=== PATIENT | female | born 1940 | race Caucasian/White ===

== ENCOUNTER 2020-04-14 18:14 | Inpatient (IN) | payer MEDICARE, MEDICAID ==
[~2020-04-14] VITALS: Ht 152.4 cm; Wt 65.8 kg
--- NOTE | 2020-04-14 18:19 | NUR ---
patient leonel Mitchell from HD center low bp 70/40 after HD Tx. On vent and trach, GT site intact, non verbal. IV access initiated. Urine collected and sent to lab. Connected to the monitor and pulse ox. Kept comfortable will continue to monitor accordingly.
--- NOTE | 2020-04-14 18:19 | NUR ---
CALLED [facility] [phone] COVID NEGATIVE 03/30/20 WILL FAX OVER INFO TO US.
[2020-04-14] MEDS ORDERED: IV NS 0.9% 500 ML BAG IV ONE (18:30)
--- NOTE | 2020-04-14 18:43 | NUR ---
MOVE SHEET SUBMITTED AND CALLED FOR TELE BED.
[2020-04-14] MEDS ORDERED: FOLI0.8T2 GT (19:05)
[2020-04-14] MEDS ORDERED: SPIR25TA6 GT (19:05)
[2020-04-14] MEDS ORDERED: LACT10SO5 GT (19:05)
[2020-04-14] MEDS ORDERED: LABE100T5 GT (19:05)
[2020-04-14] MEDS ORDERED: LINA5TAB GT (19:05)
[2020-04-14] MEDS ORDERED: CHOL100062 PO (19:05)
[2020-04-14] MEDS ORDERED: LEVO75TA7 GT (19:05)
[2020-04-14] MEDS ORDERED: CLON0.3T GT (19:05)
[2020-04-14] MEDS ORDERED: GLIM2TAB31 GT (19:05)
[2020-04-14] MEDS ORDERED: MELA3TAB41 GT (19:05)
[2020-04-14] MEDS ORDERED: DIPH25CA51 GT (19:05)
[2020-04-14] MEDS ORDERED: ACET-2605 GT (19:05)
[2020-04-14] MEDS ORDERED: FENO48TA GT (19:05)
[2020-04-14] MEDS ORDERED: HYDR25SU33 RC (19:05)
[2020-04-14] MEDS ORDERED: BLOO-668 IN (19:05)
[2020-04-14] MEDS ORDERED: INSU100V39 SQ (19:05)
[2020-04-14] MEDS ORDERED: ONDA4TAB5 GT (19:05)
[2020-04-14] MEDS ORDERED: INSU100V7 SQ (19:05)
[2020-04-14] MEDS ORDERED: SIME125C81 GT (19:05)
[2020-04-14] MEDS ORDERED: DRON2.5C18 GT (19:05)
[2020-04-14] MEDS ORDERED: AMIN30LI2 GT (19:05)
[2020-04-14] MEDS ORDERED: GABA600T12 GT (19:05)
[2020-04-14] MEDS ORDERED: MIRT7.5T10 GT (19:05)
[2020-04-14] MEDS ORDERED: LANS30CA56 GT (19:05)
--- NOTE | 2020-04-14 19:15 | NUR ---
REC'D REPORT FROM BRADLEY SHERIFF FOR CAMELIA
[2020-04-14 19:22] LABS: BASOPHILS % (AUTO) 0.1 % (0.0-2.0); EOSINOPHILS % (AUTO) 0.7 % (0.0-6.0); HEMATOCRIT 37 % (33-45); HEMOGLOBIN 11.4 g/dL (11.5-14.8); LYMPHOCYTES # (AUTO) 1.1 /CMM (0.8-4.8); LYMPHOCYTES % (AUTO) 3.9 % (20.0-44.0); MEAN CORPUSCULAR HGB CONC 31 g/dl (31.0-36.0); MEAN CORPUSCULAR VOLUME 97 fL (82-100); MONOCYTES # (AUTO) 0.8 /CMM (0.1-1.30); NEUTROPHILS # (AUTO) 26.5 /CMM (1.8-8.9); NEUTROPHILS % (AUTO) 92.3 % (43.0-81.0); PLATELET COUNT (AUTO) 356 /CMM (150-450); RED BLOOD CELL COUNT(AUTO) 3.78 MIL/uL (4.0-5.2); WHITE BLOOD COUNT (AUTO) 28.7 K/uL (4.3-11.0)
[2020-04-14 19:35] LABS: BILIRUBIN,URINE Negative (NEGATIVE); COLOR,URINE YELLOW (YELLOW); LEUKOCYTE ESTERASE ,URINE Large (NEGATIVE); NITRITE, URINE Negative (NEGATIVE); PH,URINE 5.5 (5.0-8.0); PROTEIN,URINE 100 mg/dl (NEGATIVE); UGLUCOSE Negative (NEGATIVE); UROBILINOGEN,URINE 0.2 EU/dL (0.2)
[2020-04-14 19:42] LABS: ALANINE AMINOTRANSFERASE 16 U/L (12-78); ALBUMIN 3.1 g/dL (3.4-5.0); ALKALINE PHOSPHATASE 67 U/L (46-116); ASPARTATE AMINOTRANSFERASE 16 U/L (15-37); BILIRUBIN,DIRECT 0.1 mg/dL (0.0-0.2); BILIRUBIN,TOTAL 0.5 mg/dL (0.2-1.0); CARBON DIOXIDE 22 mmol/L (21-32); CHLORIDE 103 mmol/L (98-107); CREATININE 2.8 mg/dL (0.6-1.3); GLUCOSE 174 mg/dL (74-106); POTASSIUM 4.5 mmol/L (3.5-5.1); SODIUM SERUM 139 mmol/L (136-145); TOTAL PROTEIN, SERUM 8.4 g/dL (6.4-8.2); UREA NITROGEN, BLOOD 55 mg/dL (7-18)
[2020-04-14 19:42] LABS: BACTERIA,URINE 3+ /HPF (None Seen); SQUAMOUS EPITHELIAL CELL,UR Few /HPF (None Seen); WBC,URINE 21-50 /HPF (0-3)
--- NOTE | 2020-04-14 20:05 | NUR ---
COVID SWAB SENT TO LAB
[2020-04-14] MEDS ORDERED: PIPERACILLIN /TAZOBACTAM 3.375 G in IV D5W 50 ML IV ONE (20:30)
[2020-04-14] MEDS ORDERED: VANCOMYCIN 1 GM in IV D5W 250 ML IV ONE (20:30)
[2020-04-14] MEDS ORDERED: PIPERACILLIN /TAZOBACTAM 3.375 G VIAL IV ONE (20:44)
[2020-04-14] MEDS ORDERED: VANCOMYCIN 1 GM VIAL ONE (20:44)
--- NOTE | 2020-04-14 21:03 | NUR ---
COVID SWAB SENT TO LAB
--- NOTE | 2020-04-14 21:18 | NUR ---
GAVE REPORT TO BRADLEY WAKEFIELD FOR CAMELIA.
[2020-04-14 22:00] VITALS: BP 154/80
--- NOTE | 2020-04-14 22:00 | NUR ---
RN OPENING NOTE ADMIT PATIENT FROM ER TO [facility] AT ROOM 114-2 80 YEAR OLD FEMALE NON VERBAL,ON TRACH, MECHANICAL VENT SETTING AC 12 TV500 FIO2:40% PEEP 5,O2:100% WITH DIAGNOSIS SEPSIS,ON G-TUBE FEEDING,IV SITE IS ON RIGHT AC #18 AND LEFT WRIST #20 INTACT PATENT,PERM-CATH ON RIGHT UPPER CHEST FOR DIALYSIS,MONDAY,Monday DIALYSIS DAYS,HEAD OF BE ELEVATED,CONTINUE TO MONITOR.
[2020-04-14] MEDS ORDERED: DEXTROSE 50%-WATER 50 ML DISP.SYRIN IV PRN (23:00)
[2020-04-14] MEDS ORDERED: MAG HYDROX/AL HYDROX/SIMETH 30 ML UDC PO PRN (23:00)
[2020-04-14] MEDS ORDERED: ONDANSETRON HCL/PF 4 MG/2 ML VIAL IVP PRN (23:00)
[2020-04-14] MEDS ORDERED: ACETAMINOPHEN 325 MG TABLET PO PRN (23:00)
[2020-04-14] MEDS ORDERED: MAGNESIUM HYDROXIDE 30 ML UDC PO PRN (23:00)
[2020-04-14] MEDS ORDERED: Z GUARD REMEDY 2 OZ OINT TP PRN (23:00)
[2020-04-15] VITALS (7 sets, daily range): BP systolic 134–199; BP diastolic 55–84
[2020-04-15] MEDS: NEPRO 1,000 ML BOTTLE GT PRN (05:52)
[2020-04-15 06:39] LABS: BASOPHILS % (AUTO) 0.1 % (0.0-2.0); EOSINOPHILS % (AUTO) 0.6 % (0.0-6.0); HEMATOCRIT 40 % (33-45); HEMOGLOBIN 12.6 g/dL (11.5-14.8); MEAN CORPUSCULAR HGB CONC 32 g/dl (31.0-36.0); MEAN CORPUSCULAR VOLUME 95 fL (82-100); MONOCYTES # (AUTO) 0.6 /CMM (0.1-1.30); MONOCYTES % (AUTO) 3.2 % (2.0-12.0); NEUTROPHILS # (AUTO) 17.5 /CMM (1.8-8.9); NEUTROPHILS % (AUTO) 91.1 % (43.0-81.0); PLATELET COUNT (AUTO) 336 /CMM (150-450); RED BLOOD CELL COUNT(AUTO) 4.14 MIL/uL (4.0-5.2); WHITE BLOOD COUNT (AUTO) 19.2 K/uL (4.3-11.0)
--- NOTE | 2020-04-15 06:53 | NUR ---
RN CLOSING NOTE PATIENT REMAINS ON CONFUSED NON VERBAL EYE CLOSED ON MECHANICAL VENERATOR,O2;100% ON G-TUBE FEEDING NEPHRO 55CC/HR CHECKED PLACEMENT IN PLACE NO RESIDUAL,HEAD OF BED ELEVATED ALL THE TIME,ENDORSE NEXT COMING SHIFT FOR CONTINUATION OF CARE
[2020-04-15 07:00] LABS: CALCIUM, SERUM 9.3 mg/dL (8.5-10.1); CARBON DIOXIDE 20 mmol/L (21-32); CHLORIDE 101 mmol/L (98-107); CREATININE 3.4 mg/dL (0.6-1.3); GLUCOSE 140 mg/dL (74-106); MAGNESIUM 2.3 mg/dL (1.8-2.4); PHOSPHORUS 5.5 mg/dL (2.5-4.9); POTASSIUM 5.2 mmol/L (3.5-5.1); SODIUM SERUM 137 mmol/L (136-145); UREA NITROGEN, BLOOD 66 mg/dL (7-18)
[2020-04-15] MEDS ORDERED: VANCOMYCIN 500 MG in IV D5W 100 ML IV PRN (07:30)
--- NOTE | 2020-04-15 07:30 | NUR ---
PT RECEIVED RESTING COMFORTABLY IN BED. NO S/S OR C/O PAIN OR DISTRESS NOTED. SIDERAILS UP X2, CALL LIGHT LEFT WITHIN REACH. WILL CONTINUE PLAN OF CARE.
--- NOTE | 2020-04-15 08:00 | NUR ---
WOUND CARE CONSULT: PT PRESENTS WITH SACRAL SCARRING, RASH/REDNESS TO PERINEAL/INNER THIGH AREAS, SCARRING/CALLUSED AREAS TO BILATERAL HEELS AND DISCOLORED AREAS OF SKIN ON BUTTOCKS AND UPPER EXTREMITIES, PRESENT ON ADMISSION. RECOMMENDATIONS MADE FOR SKIN PROTECTION. DISCUSSED WITH NURSING STAFF. FIRST STEP LOW AIRLOSS MATTRESS ORDERED. MD IN AGREEMENT WITH PLAN OF CARE. Addendum: 04/15/20 at 0802 by SISSY LINDSAY WNDNU Amended: Links added.
[2020-04-15] MEDS: INSULIN REGULAR, HUMAN 100 UNIT/ML 3 ML VIAL SQ PRN ×3 (08:30→17:35)
[2020-04-15] MEDS: PIPERACILLIN /TAZOBACTAM 2.25 G in IV D5W 50 ML IV SCH ×3 (09:02→17:08)
[2020-04-15] MEDS: BLOOD SUGAR DIAGNOSTIC 1 EACH STRIP VI SCH ×4 (09:03→21:55)
[2020-04-15] MEDS: LEVOTHYROXINE SODIUM 75 MCG TABLET GT SCH (09:03)
[2020-04-15] MEDS: CLOTRIMAZOLE 1% 15 GM TUBE TP SCH ×2 (09:04→16:52)
[2020-04-15] MEDS: LABETALOL HCL (100MG) 100 MG TABLET GT SCH ×3 (12:31→17:46)
--- NOTE | 2020-04-15 18:18 | NUR ---
CHANGE OF SHIFT REPORT PT RESTING COMFORTABLE IN BED. NO S/S OR C/O PAIN OR DISTRESS NOTED. SIDE RAILS UP X2, CALL LIGHT LEFT WITHIN REACH PT KEPT CLEAN, DRY, AND COMFORTABLE. NO SIGNIFICANT CHANGES SINCE PREVIOUS SHIFT. WILL GIVE REPORT TO CLOVIS HUERTA.
--- NOTE | 2020-04-15 19:30 | NUR ---
TELE1 RN NOTES RECEIVED ON BED SLEEPING,AROUSABLE TO VERBAL STIMULI,ON TRACH/VENT,SETTINGS TOLERATED WELL.GT FEEDING OF NEPRO AT 55ML/HR RATE TOLERATED WELL,WITH 5ML RESIDUAL VOLUME.HOB ELEVATED FOR ASPIRATION PRECAUTION.ISOLATION PENDING COVID PCR TEST RESULT.REPOSITION PER PROTOCOL,CALL LIGHT IN REACH,NEEDS ANTICIPATED.
--- NOTE | 2020-04-15 22:00 | NUR ---
TELE1 RN NOTES ACCU-CHECK BLOOD SUGAR CHECK 202,COVERED WITH HUMULIN R 4 UNITS PER SLIDING SCALE.
[2020-04-15] MEDS: *INSULIN REGULAR(HUMULIN R)HUM 100 UNIT/ML VIAL SQ PRN (22:01)
[2020-04-16] VITALS (8 sets, daily range): BP systolic 118–178; BP diastolic 70–85
[2020-04-16] MEDS: PIPERACILLIN /TAZOBACTAM 2.25 G in IV D5W 50 ML IV SCH ×6 (05:26→23:18)
[2020-04-16] MEDS: NEPRO 1,000 ML BOTTLE GT PRN ×2 (06:16→23:32)
[2020-04-16 06:44] LABS: BASOPHILS % (AUTO) 0.3 % (0.0-2.0); EOSINOPHILS % (AUTO) 2.3 % (0.0-6.0); HEMATOCRIT 39 % (33-45); HEMOGLOBIN 12.6 g/dL (11.5-14.8); LYMPHOCYTES # (AUTO) 1.1 /CMM (0.8-4.8); LYMPHOCYTES % (AUTO) 8.4 % (20.0-44.0); MEAN CORPUSCULAR HGB CONC 32 g/dl (31.0-36.0); MEAN CORPUSCULAR VOLUME 94 fL (82-100); MONOCYTES # (AUTO) 0.8 /CMM (0.1-1.30); MONOCYTES % (AUTO) 6.1 % (2.0-12.0); NEUTROPHILS # (AUTO) 10.7 /CMM (1.8-8.9); NEUTROPHILS % (AUTO) 82.9 % (43.0-81.0); PLATELET COUNT (AUTO) 350 /CMM (150-450); RED BLOOD CELL COUNT(AUTO) 4.14 MIL/uL (4.0-5.2); WHITE BLOOD COUNT (AUTO) 12.9 K/uL (4.3-11.0)
--- NOTE | 2020-04-16 06:48 | NUR ---
TELE1 RN NOTES SYSTOLIC BLOOD PRESSURE STILL ON THE HIGH SIDE.FOR HD TODAY,GT FEEDING TOLERATED WELL.IN NO ACUTE DISTRESS.
--- NOTE | 2020-04-16 07:15 | NUR ---
RN OPENING NOTE RECEIVED PATIENT IN BED RESTING COMFORTABLE NON VERBAL, ON TRACH, MECHANICAL VENT SETTING AC 12 TV 500 FIO2:40% PEEP 5,O2:100%. PATIENT IS ON G-TUBE FEEDING AT 55 ML/HR. IV SITE IS ON RIGHT AC #18 AND LEFT WRIST #20 INTACT PATENT. PERM-CATH ON RIGHT UPPER CHEST FOR DIALYSIS. SAFETY PREACUATIONS IMPLEMENTED, BED LOCKED IN LOWEST POSITION, HEAD OF BE ELEVATED,SIDE RAILS UP, CALL LIGHT WITHIN REACH. WILL CONTINUE TO MONITOR CLIENT AND PROVIDE CARE THROUGHOUT SHIFT.
[2020-04-16 07:19] LABS: CALCIUM, SERUM 9.1 mg/dL (8.5-10.1); CARBON DIOXIDE 21 mmol/L (21-32); CHLORIDE 102 mmol/L (98-107); CREATININE 4.2 mg/dL (0.6-1.3); GLUCOSE 130 mg/dL (74-106); MAGNESIUM 2.7 mg/dL (1.8-2.4); PHOSPHORUS 5.5 mg/dL (2.5-4.9); POTASSIUM 4.4 mmol/L (3.5-5.1); SODIUM SERUM 138 mmol/L (136-145)
[2020-04-16 07:23] LABS: UREA NITROGEN, BLOOD 98 mg/dL (7-18)
[2020-04-16] MEDS: BLOOD SUGAR DIAGNOSTIC 1 EACH STRIP VI SCH ×4 (07:30→21:32)
[2020-04-16] MEDS: LABETALOL HCL (100MG) 100 MG TABLET GT SCH (08:40)
[2020-04-16] MEDS: LEVOTHYROXINE SODIUM 75 MCG TABLET GT SCH (08:44)
[2020-04-16] MEDS: CLOTRIMAZOLE 1% 15 GM TUBE TP SCH ×2 (08:44→17:16)
[2020-04-16] MEDS: INSULIN REGULAR, HUMAN 100 UNIT/ML 3 ML VIAL SQ PRN ×3 (08:57→17:21)
[2020-04-16] MEDS ORDERED: hydrALAZINE HCL IV 20 MG VIAL IV PRN (10:30)
--- NOTE | 2020-04-16 18:56 | NUR ---
RN CLOSING NOTE PATIENT IN BED RESTING COMFORTABLE NON VERBAL, ON TRACH, MECHANICAL VENT SETTING AC 12 TV 500 FIO2:40% PEEP 5,O2:100%. PATIENT IS ON G-TUBE FEEDING AT 55 ML/HR. IV SITE IS ON RIGHT AC #18 AND LEFT WRIST #20 INTACT PATENT. PERM-CATH ON RIGHT UPPER CHEST FOR DIALYSIS. HEMODIALYSIS COMLETED TODAY WITH A TOTAL OF 1100 ML REMOVED. SAFETY PRECAUTIONS IMPLEMENTED, BED LOCKED IN LOWEST POSITION, HEAD OF BE ELEVATED,SIDE RAILS UP, CALL LIGHT WITHIN REACH. WILL ENDORSE CARE TO UPCOMING SHIFT.
--- NOTE | 2020-04-16 19:30 | NUR ---
RN OPENING NOTES: RECEIVED NONVERBAL PATIENT IN BED RESTING COMFORTABLY. PATIENT IN NO S/SX OF ACUTE DISTRESS AT THIS TIME. NO SOB NOTED. PATIENT'S BREATHING IS EVEN AND UNLABORED. PATIENT ON MECHANICAL VENT; SETTINGS PRESCRIBED; PT TOLERATED WELL. AMBU BAG AT BED SIDE ALARMS SET PER PROTOCOL AND AUDIBLE. VENT PLUGGED IN TO RED OUTLET. NO DISTRESS NOTED. PATIENT ON TELE MONITORING READING SINUS RHYTHM HR IS @80S AT THE TIME OF RECEIVED. G TUBE FLUSHING AND PATENT; SITE CLEAN DRY AND INTACT; NO RESIDUAL NOTED; G TUBE FEEDING (NEPRO @55ml/hr) PATIENT TOLERATES WELL. NOTED IV SITE ON R AC #18; PATENT, INTACT AND FLUSHING WELL; NO S/S OF INFECTION OR INFILTRATION. PT ALSO HAS R UC PERMA CATH; INTACT AND SECURED. BILATERAL SOFT WRIST RESTRAINTS IN PLACE, ASSESSED PER PROTOCOL.SAFETY MEASURES HAVE BEEN PROVIDED AND IMPLEMENTED. PATIENT BED ALARM IS ON. HEAD OF BED ELEVATED. BED IS LOCKED, IN LOWEST POSITION AND SIDE RAILS UP. CALL LIGHT WITHIN REACH OF THE PATIENT. APPLICABLE ISOLATION PRECAUTIONS IN PLACE. WILL CONTINUE TO MONITOR AND REASSESS FOR ANY CHANGES AND WILL CARRY OUT ANY ONGOING AND ACTIVE MD ORDER.
[2020-04-16] MEDS: *INSULIN REGULAR(HUMULIN R)HUM 100 UNIT/ML VIAL SQ PRN (21:34)
--- NOTE | 2020-04-16 23:00 | NUR ---
RN NOTES PATIENT REMAINS IN NO ACUTE RESPIRATORY DISTRESS AT THIS TIME, NO CHANGES TO CONDITION/STATUS. PHARMACEUTICAL SERVICE REPRESENTATIVE WELL AWARE. WILL CONTINUE TO MONITOR AND REASSESS FOR ANY CHANGES THROUGHOUT THE SHIFT
[2020-04-17] VITALS: BP 160/71
--- NOTE | 2020-04-17 03:00 | NUR ---
RN NOTES NO CHANGES IN PATIENT CONDITION AT THIS TIME PATIENT VITALS STABLE, NO SIGNS OF ACUTE RESPIRATORY DISTRESS. PATIENT STILL IN BED SLEEPING COMFORTABLY. NO NOTED PAIN OR ANY DISCOMFORT AT THIS TIME. WILL CONTINUE TO MONITOR AND REASSESS FOR ANY CHANGES THROUGHOUT THE SHIFT.
[2020-04-17 04:00] VITALS: BP 159/64
[2020-04-17] MEDS: PIPERACILLIN /TAZOBACTAM 2.25 G in IV D5W 50 ML IV SCH ×4 (05:06→23:13)
[2020-04-17 06:26] LABS: BASOPHILS % (AUTO) 0.3 % (0.0-2.0); EOSINOPHILS % (AUTO) 5.7 % (0.0-6.0); HEMATOCRIT 39 % (33-45); HEMOGLOBIN 12.5 g/dL (11.5-14.8); LYMPHOCYTES # (AUTO) 1.1 /CMM (0.8-4.8); LYMPHOCYTES % (AUTO) 8.1 % (20.0-44.0); MEAN CORPUSCULAR HGB CONC 32 g/dl (31.0-36.0); MEAN CORPUSCULAR VOLUME 95 fL (82-100); MONOCYTES # (AUTO) 1.1 /CMM (0.1-1.30); MONOCYTES % (AUTO) 8.2 % (2.0-12.0); NEUTROPHILS # (AUTO) 10.4 /CMM (1.8-8.9); NEUTROPHILS % (AUTO) 77.7 % (43.0-81.0); PLATELET COUNT (AUTO) 340 /CMM (150-450); RED BLOOD CELL COUNT(AUTO) 4.08 MIL/uL (4.0-5.2); WHITE BLOOD COUNT (AUTO) 13.3 K/uL (4.3-11.0)
--- NOTE | 2020-04-17 06:45 | NUR ---
OSTEOPATHY DOCTOR CLOSING NOTE: PATIENT REMAINS IN ROOM IN NO SIGNS OF RESPIRATORY DISTRESS; STILL ON VENT SETTING PER ORDERED. SAFETY MEASURES IMPLEMENTED, BED IN LOWEST POSITION, LOCKED, SIDE RAILS UP, CALL LIGHT WITHIN REACH. ALL NEEDS AND ORDERS ADDRESSED DURING THE SHIFT. IV ACCESS MAINTAINED INTACT, SECURED AND FLUSHING WELL. ALL DUE MEDS GIVEN ORDERED & SCHEDULED ; PATIENT TOLERATED WELL. PATIENT KEPT CLEAN AND COMFORTABLE WITHIN THE SHIFT. PATIENT ENDORSED TO INCOMING SHIFT RN WITH STABLE VITAL SIGN AND FOR CONTINUITY OF CARE.
[2020-04-17 06:46] LABS: CALCIUM, SERUM 9.1 mg/dL (8.5-10.1); CARBON DIOXIDE 30 mmol/L (21-32); CHLORIDE 97 mmol/L (98-107); GLUCOSE 197 mg/dL (74-106); MAGNESIUM 2.5 mg/dL (1.8-2.4); PHOSPHORUS 3.4 mg/dL (2.5-4.9); POTASSIUM 3.8 mmol/L (3.5-5.1); SODIUM SERUM 138 mmol/L (136-145); UREA NITROGEN, BLOOD 63 mg/dL (7-18)
[2020-04-17 08:00] VITALS: BP 155/60
--- NOTE | 2020-04-17 08:00 | NUR ---
PT RECEIVED IN BED ON VENT, SETTINGS: SHILEY 8, AC 12, TV 500, FIO2 40%, PEEP 5. NO SIGNS OF RESPIRATORY DISTRESS. PT ON MONITOR SHOWING SR 60s. PT HAS GTUBE, RUNNING NEPRO AT 55 ML/HR, MINIMAL RESIDUAL. PT RAC 18G INTACT, AND RU CW PERMACATH FOR HD. ALL SAFETY MEASURES IN PLACE. WILL CONTINUE TO MONITOR
[2020-04-17] MEDS: LEVOTHYROXINE SODIUM 75 MCG TABLET GT SCH (08:35)
[2020-04-17] MEDS: CLOTRIMAZOLE 1% 15 GM TUBE TP SCH ×2 (08:35→17:24)
[2020-04-17] MEDS: BLOOD SUGAR DIAGNOSTIC 1 EACH STRIP VI SCH ×4 (08:36→21:22)
[2020-04-17] MEDS: *INSULIN REGULAR(HUMULIN R)HUM 100 UNIT/ML VIAL SQ PRN ×2 (08:37→21:23)
[2020-04-17] MEDS: INSULIN REGULAR, HUMAN 100 UNIT/ML 3 ML VIAL SQ PRN ×2 (11:55→17:26)
[2020-04-17 12:00] VITALS: BP 147/55
[2020-04-17 16:00] VITALS: BP 135/56
--- NOTE | 2020-04-17 19:21 | NUR ---
PATIENT REMAINS IN BED, ON VENT/TRACH SETTINGS UNCHANGED. G-TUBE IN PLACE FEEDING AND TOLERATING WELL WITHOUT RESIDUAL. FEEDING PAUSED AT 1800, ENDORSED TO ONCOMING RN TO RESUME FEEDING AT [address] RECOMMENDATION OF NEPRO 55 ML/HR X 16 HOURS. IV SITES REMAIN INTACT AND FLUSHED WELL. RESTRAINTS REMAIN ATTACHED BILATERALLY ORDERED. ALL SAFETY MEASURES IN PLACE, REPORT GIVEN TO ONCOMING RN FOR CAMELIA
--- NOTE | 2020-04-17 19:30 | NUR ---
RN OPENING NOTES: RECEIVED NONVERBAL PATIENT IN BED SLEEPING COMFORTABLY. PATIENT IN NO S/SX OF ACUTE DISTRESS AT THIS TIME. NO SOB NOTED. PATIENT'S BREATHING IS EVEN AND UNLABORED. PATIENT ON MECHANICAL VENT; SETTINGS PRESCRIBED; PT TOLERATED WELL. AMBU BAG AT BED SIDE ALARMS SET PER PROTOCOL AND AUDIBLE. VENT PLUGGED IN TO RED OUTLET. NO DISTRESS NOTED. PATIENT ON TELE MONITORING READING SINUS RHYTHM HR IS @77 AT THE TIME OF RECEIVED. G TUBE FLUSHING AND PATENT; SITE CLEAN DRY AND INTACT; NO RESIDUAL NOTED; G TUBE FEEDING (NEPRO @55ml/hr) PATIENT TOLERATES WELL. NOTED IV SITE ON R AC #18; PATENT, INTACT AND FLUSHING WELL; NO S/S OF INFECTION OR INFILTRATION. PT ALSO HAS R UC PERMA CATH; INTACT AND SECURED. BILATERAL SOFT WRIST RESTRAINTS IN PLACE, ASSESSED PER PROTOCOL.SAFETY MEASURES HAVE BEEN PROVIDED AND IMPLEMENTED. PATIENT BED ALARM IS ON. HEAD OF BED ELEVATED. BED IS LOCKED, IN LOWEST POSITION AND SIDE RAILS UP. CALL LIGHT WITHIN REACH OF THE PATIENT. APPLICABLE ISOLATION PRECAUTIONS IN PLACE. WILL CONTINUE TO MONITOR AND REASSESS FOR ANY CHANGES AND WILL CARRY OUT ANY ONGOING AND ACTIVE MD ORDER.
[2020-04-17 20:00] VITALS: BP 130/76
[2020-04-17] MEDS: NEPRO 1,000 ML BOTTLE GT PRN (23:16)
[2020-04-18] VITALS: BP 151/57
--- NOTE | 2020-04-18 00:50 | NUR ---
RN NOTES ENDORSEMENT REPORT GIVEN TO BRADLEY LARES FOR CAMELIA. OIL AND GAS SUPERINTENDENT MADE AWARE.
--- NOTE | 2020-04-18 00:51 | NUR ---
RN NOTE ASSUMED CARE OF THIS PT FROM BRADLEY BOATENG
[2020-04-18 04:00] VITALS: BP 143/94
[2020-04-18] MEDS: PIPERACILLIN /TAZOBACTAM 2.25 G in IV D5W 50 ML IV SCH ×3 (05:03→17:24)
--- NOTE | 2020-04-18 06:00 | NUR ---
RN NOTE COMPLETE BED BATH AND AM CARE COMPLETED. PT TOLERATED WELL. PT REPEATEDLY TRYING TO REMOVE TRACH AND TUBINGS. REAPPLIED BILATERAL WRIST RESTRAINTS ORDERED FOR SAFETY, VISUAL CHECKS AND CIRCULATORY CHECKS DONE Q15M. GT PATENCY CONFIRMED WITH AUSCULTATION. TUBE FEEDING RESUMED ORDERED. WILL CONTINUE TO MONITOR PATIENT,
--- NOTE | 2020-04-18 06:29 | NUR ---
RN NOTE NO ACUTE CHANGES OBSERVED OVERNIGHT. PT IS AWAKE AND ALERT BUT ORIENTED X 1 (TO NAME). UNABLE TO FOLLOW COMMANDS. PATIENT'S BREATHING IS EVEN AND UNLABORED. TOLERATING VENT SETTINGS PRESCRIBED AMBU BAG AT BED SIDE ALARMS ON AND AUDIBLE. VENT PLUGGED IN TO RED OUTLET. PATIENT ON TELE MONITORING READING SINUS RHYTHM. G TUBE FLUSHED AND PATENT. SITE CLEAN DRY AND INTACT. NO RESIDUAL NOTED. G TUBE FEEDING AT 55NL/HOUR ORDERED. TOLERATING WELL. WITH 22G IV ON RIGHT HAND. PATENT, INTACT AND FLUSHING WELL; NO S/S OF INFECTION OR INFILTRATION. PT ALSO HAS R SUBCLAVIAN PERMA CATH; INTACT AND SECURED. BILATERAL SOFT WRIST RESTRAINTS IN PLACE ORDERED FOR SAFETY, SAFETY MEASURES IN PLACE PATIENT BED ALARM ON. HEAD OF BED ELEVATED. BED IS LOCKED, IN LOWEST POSITION AND SIDE RAILS UP. CALL LIGHT WITHIN REACH OF THE PATIENT. APPLICABLE ISOLATION PRECAUTIONS IN PLACE. WILL ENDORSE TO MORNING RN FOR CONTINUATION OF CARE.
[2020-04-18 07:01] LABS: BASOPHILS % (AUTO) 0.2 % (0.0-2.0); EOSINOPHILS % (AUTO) 6.1 % (0.0-6.0); HEMATOCRIT 37 % (33-45); LYMPHOCYTES % (AUTO) 6.4 % (20.0-44.0); MEAN CORPUSCULAR HGB CONC 33 g/dl (31.0-36.0); MEAN CORPUSCULAR VOLUME 94 fL (82-100); MONOCYTES # (AUTO) 1.3 /CMM (0.1-1.30); MONOCYTES % (AUTO) 8.7 % (2.0-12.0); NEUTROPHILS # (AUTO) 11.9 /CMM (1.8-8.9); NEUTROPHILS % (AUTO) 78.6 % (43.0-81.0); PLATELET COUNT (AUTO) 327 /CMM (150-450); RED BLOOD CELL COUNT(AUTO) 3.94 MIL/uL (4.0-5.2); WHITE BLOOD COUNT (AUTO) 15.2 K/uL (4.3-11.0)
[2020-04-18 07:19] LABS: CALCIUM, SERUM 8.9 mg/dL (8.5-10.1); CARBON DIOXIDE 29 mmol/L (21-32); CHLORIDE 97 mmol/L (98-107); GLUCOSE 191 mg/dL (74-106); MAGNESIUM 2.9 mg/dL (1.8-2.4); PHOSPHORUS 4.6 mg/dL (2.5-4.9); POTASSIUM 3.5 mmol/L (3.5-5.1); SODIUM SERUM 138 mmol/L (136-145)
[2020-04-18 07:32] LABS: UREA NITROGEN, BLOOD 91 mg/dL (7-18)
[2020-04-18] MEDS: BLOOD SUGAR DIAGNOSTIC 1 EACH STRIP VI SCH ×3 (07:41→18:00)
[2020-04-18] MEDS: INSULIN REGULAR, HUMAN 100 UNIT/ML 3 ML VIAL SQ PRN (07:43)
--- NOTE | 2020-04-18 07:45 | NUR ---
RN OPENING NOTE PATIENT IS IN BED WITH HOB AT SEMI FOWLERS POSITION. PATIENT IS CURRENTLY AOX1 AND IS UNABLE TO FOLLOWED COMMANDS. VENT/TRACH ARE APPLIED WITH APPROPRIATE SETTINGS AND NO SIGNS OF LABORED BREATHING. PERINEAL AND BACKSIDE REDNESS ARE NOTED. SCAB ON HEEL NOTED. BILATERAL SOFT WRIST RESTRAINTS ARE APPLIED. RAC#18 GAUGE IS PATENT, INTACT, AND HAS NO SIGNS OF INFILTRATION. PATIENT ALSO HAS RUC PERMA CATH. GTUBE IS IN PLACE WITH APPROPRIATE FEEDING. BED IS LOCKED IN THE LOWEST POSITION, CALL HIGGINS WITHIN REACH, AND ALL HOSPITAL SAFETY PRECAUTIONS ARE BEING FOLLOWED. WILL CONTINUE TO MONITOR THROUGHOUT SHIFT.
[2020-04-18] MEDS: LEVOTHYROXINE SODIUM 75 MCG TABLET GT SCH (08:48)
[2020-04-18] MEDS: CLOTRIMAZOLE 1% 15 GM TUBE TP SCH ×2 (09:20→17:00)
[2020-04-18] MEDS: *INSULIN REGULAR(HUMULIN R)HUM 100 UNIT/ML VIAL SQ PRN ×2 (12:49→18:03)
[2020-04-18] MEDS ORDERED: PIPE2.257 IV (12:58)
[2020-04-18] MEDS ORDERED: RXVAN XX (12:58)
[2020-04-18 13:55] VITALS: BP 157/75
[2020-04-18 16:00] VITALS: BP 155/71
--- NOTE | 2020-04-18 16:09 | NUR ---
on hemodialysis,per [facility] ambulance pickup around 9pm.
--- NOTE | 2020-04-18 17:49 | NUR ---
DAUGHTER NOTIFIED REGARDING DISCHARGE,C/O LAZARO.
[2020-04-18] MEDS ORDERED: VANCOMYCIN 1 GM in IV D5W 250 ML IV ONE (18:00)
--- NOTE | 2020-04-18 19:10 | NUR ---
RECEIVED PT ON BED AWAKE A/O X1 ON TRACH VENT SETTING PER MD FIO2 40% SPO2 97% TELE MONITOR READS SINUS RHYTHM 80'S HAVE RU C PERMACTH CDI, HAVE BILATERAL WRIST RESTRAINTS CIRCULATION CHECKED, HAVE GTUBE IN PLACE PLACEMENT CHECKED AND RESIDUAL OF 10ML WITH ONGOING NEPHRO @ 55ML/HR TOLERATING WELL BED ON LOWEST POSITION AND LOCKED SIDE RAILS UP X2 CALL LIGHT WITHIN REACH WILL CONT TO MONITOR
--- NOTE | 2020-04-18 19:17 | NUR ---
RN CLOSING NOTE PATIENT IS IN BED WITH HOB AT SEMIFOWLERS POSITION. PATIENT IS AOX1. TRACH/VENT IS APPLIED WITH NO SIGNS OF LABORED BREATHING. PERINEAL REDNES, UPPER EXTREMITY REDNESS, AND BUTTOCKS REDNESS ARE NOTED. GTUBE IS IN PLACE. BED IS LOCKED IN THE LOWEST POSITION, 3 GUARD RAILS RAISED, CALL HIGGINS WITHIN REACH, AND ALL HOSPITAL SAFETY PRECAUTIONS ARE BEING FOLLOWED. ENDORSED TO TEST RACK OPERATOR RN.
--- NOTE | 2020-04-18 19:40 | NUR ---
PT IS FOR DISCHARGE REPORT GIVEN TO [facility] NURSE [phone] INFORMED THEM THAT AMBULANCE ETA IS @ 2100 WILL CONT TO MONITOR THE PT
[2020-04-18 20:00] VITALS: BP 168/69
--- NOTE | 2020-04-18 20:18 | NUR ---
REPORTED TO DR. DERAS THAT PT BP IS 168/69 AND DONT HAVE ANY BP MEDS, WITH ORDER FOR CLONIDINE 0.2 GT X1 NOTED AND CARRIED OUT
[2020-04-18 20:26] VITALS: BP 168/69
[2020-04-18] MEDS ORDERED: CLONIDINE HCL 0.1 MG TABLET GT ONE ×2 (20:30)
--- NOTE | 2020-04-18 21:00 | NUR ---
AMBULANCE STAFF ARRIVED TO INTERMEDIATE PROJECT MANAGER PT AND TRANSFER HER TO [facility], V/S CHECKED 98.2 BP 133/95 HR 80, RR 18 SPO2 97% NO SIGN AND SYMPTOMS OF DISTRESS,NOP PAIN COMPLAINED PT IS AWAKE A/O X2 , INSERTED IV ON LEFT HAND G24 PATENT AND NO SWELLING NOTED,PT IS CLEAN AND TIDY, SAFELY TRANSFER FROM BED TO [facility], BELONGINGS ENDORSED TO AMBULANCE STAFF, ON ROUTE TO THE FACILITY
== END 2020-04-18 21:15 | DRG 870 ==
LOC: ER 18:33 → TRANSITION 20:38 → TELE1 20:49
PROVIDERS: ADMIT Internal Medicine; ATTEND Hospitalist
PROC: 5A1955Z Respiratory Ventilation, Greater than 96 Consecutive Hours (ICD-10-PCS; principal; 2020-04-14)
PROC: 5A1D70Z Performance of Urinary Filtration, Intermittent, Less than 6 Hours Per Day (ICD-10-PCS; 2020-04-16)
DX: A41.9 Sepsis, unspecified organism (principal); E43 Unspecified severe protein-calorie malnutrition; G93.41 Metabolic encephalopathy; N18.6 End stage renal disease; J96.21 Acute and chronic respiratory failure with hypoxia; J18.9 Pneumonia, unspecified organism; R65.21 Severe sepsis with septic shock; I12.0 Hypertensive chronic kidney disease with stage 5 chronic kidney disease or end stage renal disease; N39.0 Urinary tract infection, site not specified; Z99.11 Dependence on respirator [ventilator] status; J84.9 Interstitial pulmonary disease, unspecified; D63.8 Anemia in other chronic diseases classified elsewhere; E11.22 Type 2 diabetes mellitus with diabetic chronic kidney disease; Z86.16 Personal history of COVID-19; E03.9 Hypothyroidism, unspecified; E78.5 Hyperlipidemia, unspecified; Z20.822 Contact with and (suspected) exposure to COVID-19; Z79.4 Long term (current) use of insulin; Z99.2 Dependence on renal dialysis; Z87.01 Personal history of pneumonia (recurrent); Z83.3 Family history of diabetes mellitus; E88.09 Other disorders of plasma-protein metabolism, not elsewhere classified; Z68.28 Body mass index [BMI] 28.0-28.9, adult; E11.65 Type 2 diabetes mellitus with hyperglycemia
CPT/HCPCS: 31720; 36415; 71045-TC; 80048-TC; 80076-TC; 80202-TC; 81001; 82962-TC; 83605-TC; 83735-TC; 84100-TC; 84484-TC; 85025-TC; 85730-TC; 86706; 87040-TC; 87081-TC; 87086-TC; 87340; 90935-TC; 94002-TC; 94003-TC; 94760-TC; 94762-TC; 94799-TC; 99082-TC; A7526; G0378; J1815; J2543; J3370; J7040; J7050; J7060; U0003